=== PATIENT | female | born 1955 | race Caucasian/White ===

== ENCOUNTER 2017-02-10 09:51 | Emergency (ER) | payer OTHER ==
[2017-02-10 09:59] VITALS: BP 130/82
[2017-02-10] MEDS ORDERED: Tetan/Diph/Pertus SYR(Tdap)* 0.5 ML SYR(BOOSTRIX) use SYR IM ONE (10:38)
--- NOTE | 2017-02-10 15:01 | UC ---
Nessa Hsieh SooYoung, scribed for Guerita Ny MD on 02/10/17 at 1002 . Laceration HPI - HPI Summary HPI Summary: A 61 y/o F presents to [facility] with c/o R inner thigh lac onset yesterday. Pt was watering her tomatoes, she slipped and fell onto a wooden gardening stake. Doesn 't believe splinters are present in the wound. She wanted to be evaluated by a provider for possible stitches and to get a Tdap shot. Last tetanus was in 2002. Pt rinsed lac with peroxide, and she placed gauze and bandage with Neosporin over area yesterday. Pt had R cataract surgery with anaesthesia this AM [employer]. Pt goes to [place] for care, had a recent physical. Pt states being healthy otherwise. - History Of Current Complaint Chief Complaint: UCLaceration Stated Complaint: LEG COMPLAINT Hx Obtained From: Patient Laceration Location: Thigh - R Mechanism Of Injury: Sharp Trauma Onset/Duration: Sudden Onset, Lasting Hours - onset yesterday, Still Present Severity: Mild Pain Intensity: 1 Pain Scale Used: 0-10 Numeric - Allergies/Home Medications Allergies/Adverse Reactions: Allergies Allergy/AdvReac Type Severity Reaction Status Date / Time No Known Allergies Allergy Verified 02/10/17 09:58 Home Medications: Home Medications NK [No Home Medications Reported] 02/10/17 [History Confirmed 02/10/17] PMH/Surg Hx/FS Hx/Imm Hx Previously Healthy: No - neg: DM, COPD - Surgical History Surgical History: None Surgery Procedure, Year, and Place: Cataract Surgery 02/10/17 [facility] - Family History Known Family History: Positive: Other - neg Breast CA - Social History Occupation: Employed Full-time Lives: Alone Alcohol Use: Daily Alcohol Amount: 1-2 glasses wine Substance Use Type: None Smoking Status (MU): Light Every Day Tobacco Smoker Amount Used/How Often: 2-3packs per week Review of Systems Skin: Bruising - inner R thigh, Other - lac to R thigh All Other Systems Reviewed And Are Negative: Yes Physical Exam Triage Information Reviewed: Yes Appearance: Well-Appearing, Well-Nourished Vital Signs: Initial Vital Signs Temp 98.0 F 02/10/17 09:52 Pulse 54 02/10/17 09:52 Resp 16 02/10/17 09:52 BP 130/82 02/10/17 09:52 Pulse Ox 100 02/10/17 09:52 Vital Signs Reviewed: Yes Eye Exam: Normal ENT Exam: Normal Neck exam: Normal Neck: Positive: Supple, Nontender Respiratory Exam: Normal - no dyspnea, no tachypnea, normal respiratory rate Cardiovascular Exam: Normal - Heart rate regular, good general skin color, good capillary refill Abdominal Exam: Normal Abdomen Description: Positive: Nontender, No Organomegaly, Soft Bowel Sounds: Positive: Present Musculoskeletal Exam: Normal Musculoskeletal: Positive: Strength Intact, Other: - DB/PT 2+ equal; light touch distal sensation present; no calf tenderness Neurological Exam: Normal - nonfocal, grossly intact Psychological Exam: Normal - conversing easily and appropriately Skin Exam: Other - Boomerang shaped lac: 7cm width x 1.8cm length x 0.6cm depth. Periwound ecchymosis: 12cm length x 10cm width. Lac extends through visible muscle. Capillary bleeding upon wound examination and cleaning; otherwise, no active bleeding at this time. Skin: Negative: rashes Laceration Course/Dx - Course/Dx Course Of Treatment: Lac gently irrigated with 100ccs nml saline by nurse. Surgicel placed by MD. ABX recommended to pt, pt strongly declined. Pt medications reviewed this visit. Pre-Hypertensive BP reading (130/82); patient referred to PCP for follow-up. - Differential Dx - Laceration/Wound Provider Diagnoses: R medial thigh laceration full thickness including muscle Discharge - Discharge Plan Condition: Stable Disposition: HOME Patient Education Materials: Diphtheria/Acellular Pertussis/Tetanus Booster Vaccine (By injection), Laceration Without Closure (ED) Referrals: [facility] [Outside] - 2 Days (Follow up at the [facility] on 02/12 at 08:00.) Chris Johnson MD [Primary Care Provider] - Additional Instructions: Follow up at the [facility] on , 02/12 at 08:00 AM. You will need to call [phone] TODAY to confirm appointment. Surgicel / guaze / abd pad applied today. Leave in place until your appointment , unless the dressing saturates, or if you have a fever, redness, worse or new pain. Then seek immediate medical attention. Your blood pressure reading today was 130/82, which is PRE-HYPERTENSIVE. Follow- up with your primary care provider within 4 weeks for blood pressure readings and further evaluation. Seek medical attention for worse or new problems in the meantime. The documentation as recorded by the Nessa ohara SooYoung accurately reflects the service I personally performed and the decisions made by me, Guerita Ny MD.
== END 2017-02-10 11:20 | disposition home or self-care (01) ==
LOC: UCEAST 09:51
DX: S76.921A Laceration of unspecified muscles, fascia and tendons at thigh level, right thigh, initial encounter (principal); W01.0XXA Fall on same level from slipping, tripping and stumbling without subsequent striking against object, initial encounter; Y93.H2 Activity, gardening and landscaping; Y92.007 Garden or yard of unspecified non-institutional (private) residence as the place of occurrence of the external cause; Y99.9 Unspecified external cause status; Z72.0 Tobacco use
CPT/HCPCS: 90471; 90715; 99213; G0463